=== PATIENT | female | born 1930 | race American Indian/Alaskan Native ===

== ENCOUNTER 2017-07-27 16:42 | Emergency (ER) | payer MEDICARE ==
[2017-07-27 18:01] LABS: Basophils # (Auto) 0.1 K/mm3 (0.0-0.1); Eosinophils # (Auto) 0.2 K/mm3 (0.0-0.4); Eosinophils % (Auto) 3.5 % (0.0-4.3); Hematocrit 40.2 % (30.3-42.9); Hemoglobin 13.4 gm/dl (10.1-14.3); Lymphocytes # (Auto) 2.7 K/mm3 (1.2-5.4); Lymphocytes % (Auto) 44.4 % (13.4-35.0); Mean Corpuscular HGB Conc 33 % (30-34); Mean Corpuscular Hemoglobin 31 pg (28-32); Mean Corpuscular Volume 94 fl (79-97); Monocytes # (Auto) 0.6 K/mm3 (0.0-0.8); Monocytes % (Auto) 10.1 % (0.0-7.3); Platelet Count 181 K/mm3 (140-440); Red Blood Count 4.27 M/mm3 (3.65-5.03); Red Cell Distribution Width 13.5 % (13.2-15.2)
[2017-07-27 18:10] LABS: INR 0.92 (0.87-1.13)
[2017-07-27 18:11] LABS: Partial Thromboplastin Time 29.6 Sec. (24.2-36.6)
[2017-07-27 18:17] LABS: Alanine Aminotransferase 7 units/L (7-56); Albumin 3.4 g/dL (3.9-5); BUN/Creatinine Ratio 16; Blood Urea Nitrogen 11 mg/dL (7-17); Calcium 8.9 mg/dL (8.4-10.2); Hemolysis Index 9
--- NOTE | 2017-07-27 18:59 | Cat Scan Report ---
FINAL REPORT PROCEDURE: CT head without contrast. TECHNIQUE: Computerized tomography of the head was performed without contrast material. HISTORY: neuro deficits < 6hrs or sx present upon awakening COMPARISON: No prior studies are available for comparison. FINDINGS: There is motion artifact on some of the images. There is moderate cerebral atrophy. There is mild evidence of chronic ischemic white matter disease. There are no mass lesions. There is no intracranial hemorrhage. The calvarium appears intact. The mastoid air cells and visualized paranasal sinuses are well aerated. IMPRESSION: Normal study for age.
--- NOTE | 2017-07-27 19:43 | Emergency Department Report ---
ED General Adult HPI - General Chief complaint: Altered Mental Status Stated complaint: AMS Time Seen by Provider: 07/27/17 17:41 Source: patient Mode of arrival: Ambulatory Limitations: No Limitations - History of Present Illness Initial comments: Patient is an 86-year-old female past history of Alzheimer's disease dementia and high blood pressure. Presents with altered mental status. History is obtained by patient's daughter. Patient stays at hospice facility and earlier on today she was slumped over on her left side and not as communicative as she normally is per her daughter. Patient currently answers questions and denies being in any pain. Patient started states that patient has returned to her baseline. Patient's are also states that patient has not eaten anything today. - Related Data Home Medications Medication Instructions Recorded Confirmed Last Taken Aspirin [Aspirin BABY CHEW TAB] 81 mg PO QDAY 01/26/13 01/26/13 01/26/13 08:00 81 Insulin Glargine,Hum.rec.anlog 15 unit SQ QDAY 01/26/13 01/26/13 01/26/13 07:30 [Lantus Solostar] 15u Levothyroxine [Synthroid] 100 mcg PO QAM 01/26/13 01/26/13 01/26/13 08:00 25 Vit D3-Vit K/Berberine/Hops 01/26/13 01/26/13 01/22/13 08:00 [Ostera Tablet] amLODIPine/VALSARTAN [Exforge 1 each PO BID 01/26/13 01/26/13 01/26/13 08:00 5-160 mg Tablet] 1 Azelastine/Fluticasone [Dymista 137 mcg NS PRN 04/11/13 04/11/13 Unknown Nasal False Pass] HYDROcodone/ACETAMINOPHEN 1 each PO Q4H PRN 04/11/13 04/11/13 Unknown [Hydrocodone-Acetaminophnen(Nf) 10/500 mg Tab] Insulin NPH/Regular [NovoLIN 70/30] 12 unit SQ BIDDIAB 04/11/13 04/11/13 Unknown Montelukast Sodium 10 04/11/13 04/11/13 Unknown Aspirin EC [Aspirin Enteric Coated 81 mg PO QDAY 08/19/14 10/11/14 10/09/14 TAB] Cholecalciferol Vit D3 [Vitamin D3] 1,000 unit PO QDAY 08/19/14 10/11/14 Fluticasone Propionate [Flovent 1 puff IH BID 08/19/14 10/11/14 10/09/14 Diskus] Ipratropium/Albuterol Sulfate 2 puff IH BID 08/19/14 10/11/14 10/09/14 [Combivent Respimat] Ipratropium/Albuterol Sulfate 3 ml IH BID 08/19/14 10/11/14 10/09/14 [Iprat-Albut 0.5-3(2.5) mg/3 ml] Montelukast [Singulair] 10 mg PO DAILY 08/19/14 10/11/14 10/09/14 Combivent Respimat 2 puff INHALATION BID 10/09/14 10/11/14 10/09/14 Levothyroxine 100 mcg PO QDAY 10/09/14 10/11/14 10/09/14 NovoLIN 70/30 12 units SUB-Q BID 10/09/14 10/11/14 10/09/14 12 UNITS Valsartan-Hctz 160-12.5 mg 1 tab PO QDAY 10/09/14 10/11/14 10/09/14 HYDROcodone/APAP 7.5-325 [[place] 2 tsp PO Q4HR PRN 10/11/14 10/11/14 10/09/14 7.5-325 mg per 15 ML] metFORMIN [Glucophage] 500 mg PO BID 10/11/14 10/11/14 10/09/14 Previous Rx's Medication Instructions Recorded Last Taken Type Ipratropium/Albuterol Sulfate 1 ampul IH Q6HRT #24 ampul.neb 01/26/13 Unknown Rx [DUONEB *Not for PRN Use*] Prednisone 40 mg PO QDAY #5 day 01/26/13 Unknown Rx Ranitidine HCl [Zantac] 300 mg PO QDAY #20 tablet 04/11/13 Unknown Rx Prednisone 20 mg PO QDAY #30 tablet 05/09/13 Unknown Rx Benzonatate [Tessalon Perles] 100 mg PO Q8HR PRN #30 capsule 11/05/13 Unknown Rx Omeprazole [PriLOSEC] 40 mg PO DAILY #30 capsule. 08/21/14 10/09/14 Rx traMADol [Ultram 50 MG tab] 50 mg PO Q8HR PRN #20 tablet 07/31/15 Unknown Rx Allergies Allergy/AdvReac Type Severity Reaction Status Date / Time No Known Allergies Allergy Verified 04/11/13 15:49 ED Review of Systems ROS: Stated complaint: AMS Other details as noted in HPI Comment: Unobtainable due to pts medical conditions (dementia) ED Past Medical Hx - Past Medical History Previous Medical History?: Yes Hx Hypertension: Yes Hx CVA: Yes Hx Heart Attack/AMI: No Hx Congestive Heart Failure: No Hx Diabetes: Yes Hx Deep Vein Thrombosis: No Hx Pulmonary Embolism: No Hx GERD: Yes Hx Liver Disease: No Hx Renal Disease: Yes Hx Sickle Cell Disease: No Hx Arthritis: Yes Hx Seizures: No Hx Kidney Stones: No Hx Asthma: Yes (chronic cough) Hx COPD: No Hx Tuberculosis: No Hx Dementia: No Additional medical history: shingles - Surgical History Past Surgical History?: Yes Hx Coronary Stent: No Hx Open Heart Surgery: No Hx Pacemaker: No Hx Internal Defibrillator: No Hx Cholecystectomy: No Hx Appendectomy: No Hx Breast Surgery: Yes (Left breast cyst removed) - Social History Smoking Status: Never Smoker - Medications Home Medications: Home Medications Medication Instructions Recorded Confirmed Last Taken Type Aspirin [Aspirin BABY CHEW TAB] 81 mg PO QDAY 01/26/13 01/26/13 01/26/13 08:00 History 81 Insulin Glargine,Hum.rec.anlog 15 unit SQ QDAY 01/26/13 01/26/13 01/26/13 07:30 History [Lantus Solostar] 15u Ipratropium/Albuterol Sulfate 1 ampul IH Q6HRT #24 ampul.neb 01/26/13 Unknown Rx [DUONEB *Not for PRN Use*] Levothyroxine [Synthroid] 100 mcg PO QAM 01/26/13 01/26/13 01/26/13 08:00 History 25 Prednisone 40 mg PO QDAY #5 day 01/26/13 Unknown Rx Vit D3-Vit K/Berberine/Hops 01/26/13 01/26/13 01/22/13 08:00 History [Ostera Tablet] amLODIPine/VALSARTAN [Exforge 1 each PO BID 01/26/13 01/26/13 01/26/13 08:00 History 5-160 mg Tablet] 1 Azelastine/Fluticasone [Dymista 137 mcg NS PRN 04/11/13 04/11/13 Unknown History Nasal False Pass] HYDROcodone/ACETAMINOPHEN 1 each PO Q4H PRN 04/11/13 04/11/13 Unknown History [Hydrocodone-Acetaminophnen(Nf) 10/500 mg Tab] Insulin NPH/Regular [NovoLIN 70/30] 12 unit SQ BIDDIAB 04/11/13 04/11/13 Unknown History Montelukast Sodium 10 04/11/13 04/11/13 Unknown History Ranitidine HCl [Zantac] 300 mg PO QDAY #20 tablet 04/11/13 Unknown Rx Prednisone 20 mg PO QDAY #30 tablet 05/09/13 Unknown Rx Benzonatate [Tessalon Perles] 100 mg PO Q8HR PRN #30 capsule 11/05/13 Unknown Rx Aspirin EC [Aspirin Enteric Coated 81 mg PO QDAY 08/19/14 10/11/14 10/09/14 History TAB] Cholecalciferol Vit D3 [Vitamin D3] 1,000 unit PO QDAY 08/19/14 10/11/14 History Fluticasone Propionate [Flovent 1 puff IH BID 08/19/14 10/11/14 10/09/14 History Diskus] Ipratropium/Albuterol Sulfate 2 puff IH BID 08/19/14 10/11/14 10/09/14 History [Combivent Respimat] Ipratropium/Albuterol Sulfate 3 ml IH BID 08/19/14 10/11/14 10/09/14 History [Iprat-Albut 0.5-3(2.5) mg/3 ml] Montelukast [Singulair] 10 mg PO DAILY 08/19/14 10/11/14 10/09/14 History Omeprazole [PriLOSEC] 40 mg PO DAILY #30 capsule. 08/21/14 10/11/14 10/09/14 Rx Combivent Respimat 2 puff INHALATION BID 10/09/14 10/11/14 10/09/14 History Levothyroxine 100 mcg PO QDAY 0510/11/14 10/09/14 History NovoLIN 70/30 12 units SUB-Q BID 10/09/14 10/11/14 10/09/14 History 12 UNITS Valsartan-Hctz 160-12.5 mg 1 tab PO QDAY 10/09/14 10/11/14 10/09/14 History HYDROcodone/APAP 7.5-325 [[place] 2 tsp PO Q4HR PRN 10/11/14 10/11/14 10/09/14 History 7.5-325 mg per 15 ML] metFORMIN [Glucophage] 500 mg PO BID 10/11/14 10/11/14 10/09/14 History traMADol [Ultram 50 MG tab] 50 mg PO Q8HR PRN #20 tablet 07/31/15 Unknown Rx ED Physical Exam - General Limitations: No Limitations General appearance: alert, in no apparent distress - Head Head exam: Present: atraumatic, normocephalic - Eye Eye exam: Present: normal appearance - ENT ENT exam: Present: mucous membranes moist - Neck Neck exam: Present: normal inspection - Respiratory Respiratory exam: Present: normal lung sounds bilaterally. Absent: respiratory distress - Cardiovascular Cardiovascular Exam: Present: regular rate, normal rhythm. Absent: systolic murmur, diastolic murmur, rubs, gallop - GI/Abdominal GI/Abdominal exam: Present: soft, normal bowel sounds - Extremities Exam Extremities exam: Present: normal inspection - Back Exam Back exam: Present: normal inspection - Neurological Exam Neurological exam: Present: alert, other (oriented x 1 ) - Psychiatric Psychiatric exam: Present: normal affect, normal mood - Skin Skin exam: Present: warm, dry, intact, normal color. Absent: rash ED Course Vital Signs 07/27/17 07/27/17 07/27/17 17:08 17:15 19:03 Temperature 98.1 F Pulse Rate 86 85 Respiratory 16 11 L 16 Rate Blood Pressure 163/93 163/93 O2 Sat by Pulse 97 95 96 Oximetry 07/27/17 19:15 Temperature Pulse Rate 113 H Respiratory 21 Rate Blood Pressure 164/94 O2 Sat by Pulse 95 Oximetry ED Medical Decision Making - Lab Data Result diagrams: 07/27/17 17:43 07/27/17 17:43 Lab Results 07/27/17 07/27/17 07/27/17 Range/Units 17:43 17:43 17:43 WBC 6.1 (4.5-11.0) K/mm3 RBC 4.27 (3.65-5.03) M/mm3 Hgb 13.4 (10.1-14.3) gm/dl Hct 40.2 (30.3-42.9) % MCV 94 (79-97) fl MCH 31 (28-32) pg MCHC 33 (30-34) % RDW 13.5 (13.2-15.2) % Plt Count 181 (140-440) K/mm3 Lymph % (Auto) 44.4 H (13.4-35.0) % Grimes % (Auto) 10.1 H (0.0-7.3) % Eos % (Auto) 3.5 (0.0-4.3) % Baso % (Auto) 1.0 (0.0-1.8) % Lymph # 2.7 (1.2-5.4) K/mm3 Grimes # 0.6 (0.0-0.8) K/mm3 Eos # 0.2 (0.0-0.4) K/mm3 Baso # 0.1 (0.0-0.1) K/mm3 Seg Neutrophils % 41.0 (40.0-70.0) % Seg Neutrophils # 2.5 (1.8-7.7) K/mm3 PT 12.8 (12.2-14.9) Sec. INR 0.92 (0.87-1.13) APTT 29.6 (24.2-36.6) Sec. Thrombin Time (15.1-19.6) Sec. Sodium 138 (137-145) mmol/L Potassium 3.8 (3.6-5.0) mmol/L Chloride 100.8 (98-107) mmol/L Carbon Dioxide 24 (22-30) mmol/L Anion Gap 17 mmol/L BUN 11 (7-17) mg/dL Creatinine 0.7 (0.7-1.2) mg/dL Estimated GFR > 60 ml/min BUN/Creatinine Ratio 16 % Glucose 85 (65-100) mg/dL Calcium 8.9 (8.4-10.2) mg/dL Total Bilirubin 0.70 (0.1-1.2) mg/dL AST 14 (5-40) units/L ALT 7 (7-56) units/L Alkaline Phosphatase 47 (35-129) units/L Troponin T < 0.010 (0.00-0.029) ng/mL Total Protein 6.3 (6.3-8.2) g/dL Albumin 3.4 L (3.9-5) g/dL Albumin/Globulin Ratio 1.2 % TSH (0.270-4.200) mlU/mL Plasma/Serum Alcohol (0-0.07) % 07/27/17 07/27/17 07/27/17 Range/Units 17:43 17:43 17:43 WBC (4.5-11.0) K/mm3 RBC (3.65-5.03) M/mm3 Hgb (10.1-14.3) gm/dl Hct (30.3-42.9) % MCV (79-97) fl MCH (28-32) pg MCHC (30-34) % RDW (13.2-15.2) % Plt Count (140-440) K/mm3 Lymph % (Auto) (13.4-35.0) % [place]imes % (Auto) (0.0-7.3) % Eos % (Auto) (0.0-4.3) % Baso % (Auto) (0.0-1.8) % Lymph # (1.2-5.4) K/mm3 [place]imes # (0.0-0.8) K/mm3 Eos # (0.0-0.4) K/mm3 Baso # (0.0-0.1) K/mm3 Seg Neutrophils % (40.0-70.0) % Seg Neutrophils # (1.8-7.7) K/mm3 PT (12.2-14.9) Sec. INR (0.87-1.13) APTT (24.2-36.6) Sec. Thrombin Time 17.0 (15.1-19.6) Sec. Sodium (137-145) mmol/L Potassium (3.6-5.0) mmol/L Chloride (98-107) mmol/L Carbon Dioxide (22-30) mmol/L Anion Gap mmol/L BUN (7-17) mg/dL Creatinine (0.7-1.2) mg/dL Estimated GFR ml/min BUN/Creatinine Ratio % Glucose (65-100) mg/dL Calcium (8.4-10.2) mg/dL Total Bilirubin (0.1-1.2) mg/dL AST (5-40) units/L ALT (7-56) units/L Alkaline Phosphatase (35-129) units/L Troponin T (0.00-0.029) ng/mL Total Protein (6.3-8.2) g/dL Albumin (3.9-5) g/dL Albumin/Globulin Ratio % TSH 0.576 (0.270-4.200) mlU/mL Plasma/Serum Alcohol < 0.01 (0-0.07) % - EKG Data -: EKG Interpreted by Me - EKG Data 07/27/17 19:45 EKG shows sinus rhythm no ST segment elevation or T-wave inversion normal axis - Radiology Data Radiology results: report reviewed CT head: Shows no acute intracranial process - Medical Decision Making Cdx: Brain bleed ddx: Ishemic stroke, hypoglycemia, metabolic abnormality I will get ct head, blood work, and ekg. I will re-evaluate the patient. Per patient's daughter patient is back to her baseline. I will send patient back to her nursing facility. Pt's daughter agrees with plan. Additional verbal discharge instructions were given. Critical care attestation.: If time is entered above; I have spent that time in minutes in the direct care of this critically ill patient, excluding procedure time. ED Disposition Clinical Impression: Weakness, Encephalopathy Dementia Qualifiers: Dementia type: Alzheimer's disease Alzheimer's disease onset: unspecified onset Dementia behavioral disturbance: without behavioral disturbance Qualified Code(s): G30.9 - Alzheimer's disease, unspecified; F02.80 - Dementia in other diseases classified elsewhere without behavioral disturbance Disposition: DC-01 TO HOME OR SELFCARE Is pt being admited?: No Does the pt Need Aspirin: No Condition: Stable Instructions: Dementia (ED) Referrals: LORENA COOLEY MD [Staff Physician] - 3-5 Days
[2017-07-27 20:44] VITALS: BP 145/90
== END 2017-07-27 20:45 | disposition home or self-care (01) ==
LOC: ED 16:42
DX: G30.9 Alzheimer's disease, unspecified (principal); F02.80 Dementia in other diseases classified elsewhere, unspecified severity, without behavioral disturbance, psychotic disturbance, mood disturbance, and anxiety; G93.40 Encephalopathy, unspecified; R53.1 Weakness; I10 Essential (primary) hypertension; E11.9 Type 2 diabetes mellitus without complications; K21.9 Gastro-esophageal reflux disease without esophagitis; M19.90 Unspecified osteoarthritis, unspecified site; J45.909 Unspecified asthma, uncomplicated; Z86.73 Personal history of transient ischemic attack (TIA), and cerebral infarction without residual deficits; Z79.899 Other long term (current) drug therapy
CPT/HCPCS: 36415; 70450; 80048; 80053; 84443; 84484; 85025; 85610; 85670; 85730; 93005; 93010; 99285; G0480; 80320

== ENCOUNTER 2018-02-27 20:51 | Inpatient (IN) | payer MEDICARE ==
[2018-02-27] MEDS ORDERED: NACL 0.9% 1000 ML 1,000 ML IV ONE (21:38)
--- NOTE | 2018-02-27 21:44 | Emergency Department Report ---
ED CPR HPI - General Chief Complaint: Cardiac Arrest/CPR Stated Complaint: CARDIAC ARREST Time Seen by Provider: 02/27/18 21:18 Source: EMS Mode of arrival: Stretcher Limitations: Physical Limitation - History of Present Illness Initial Comments: Patient is a 87-year-old female with history of CVA, hypertension, diabetes. Patient brought to the ER for evaluation for cardiac arrest. EMS stated that patient lived in an assisted living and they found the patient unresponsive with no pulse. Patient immediately intubated by EMS, initial events show asystole, patient given 2 mg of epinephrine and patient retain her circulation. Upon arrival to the ER patient blood pressure is 70/38 with epinephrine drip started by EMS. paintings restorer showing sinus rhythm. Endotracheal tube confirmed by good breath sound on both sides with color change in the capnometry. I inserted a right femoral central line for fluid resuscitation and vasopressor. Patient is started on Levophed drip. Initial EKG did not show any evidence of STEMI. MD Complaint: found unresponsive Bystander CPR Performed: Yes AED Applied by Bystander/Grounds Maintenance Manager: Yes Shock Advised: No Initial Findings in the Field: unresponsive, no pulse, systole ROSC in the Field: Yes Associated Injuries: No - Related Data Home Medications Medication Instructions Recorded Confirmed Last Taken Aspirin [Aspirin BABY CHEW TAB] 81 mg PO QDAY 01/26/13 01/26/13 01/26/13 08:00 81 Insulin Glargine,Hum.rec.anlog 15 unit SQ QDAY 01/26/13 01/26/13 01/26/13 07:30 [Lantus Solostar] 15u Levothyroxine [Synthroid] 100 mcg PO QAM 01/26/13 01/26/13 01/26/13 08:00 25 Vit D3-Vit K/Berber[place]/Hops 01/26/13 01/26/13 01/22/13 08:00 [Ostera Tablet] amLODIPine/VALSARTAN [Exforge 1 each PO BID 01/26/13 01/26/13 01/26/13 08:00 5-160 mg Tablet] 1 Azelastine/Fluticasone [Dymista 137 mcg NS PRN 04/11/13 04/11/13 Unknown Nasal [place]] HYDROcodone/ACETAMINOPHEN 1 each PO Q4H PRN 04/11/13 04/11/13 Unknown [Hydrocodone-Acetaminophnen(Nf) 10/500 mg Tab] Insulin NPH/Regular [NovoLIN ] 12 unit SQ BIDDIAB 04/11/13 04/11/13 Unknown Montelukast Sodium 10 04/11/13 04/11/13 Unknown Aspirin EC [Aspirin Enteric Coated 81 mg PO QDAY 08/19/14 10/11/14 10/09/14 TAB] Cholecalciferol Vit D3 [Vitamin D3] 1,000 unit PO QDAY 08/19/14 10/11/14 Fluticasone Propionate [Flovent 1 puff IH BID 08/19/14 10/11/14 10/09/14 Diskus] Ipratropium/Albuterol Sulfate 2 puff IH BID 08/19/14 10/11/14 10/09/14 [Combivent Respimat] Ipratropium/Albuterol Sulfate 3 ml IH BID 08/19/14 10/11/14 10/09/14 [Iprat-Albut 0.5-3(2.5) mg/3 ml] Montelukast [Singulair] 10 mg PO DAILY 08/19/14 10/11/14 10/09/14 Combivent Respimat 2 puff INHALATION BID 10/09/14 10/11/14 10/09/14 Levothyroxine 100 mcg PO QDAY 10/09/14 10/11/14 10/09/14 NovoLIN 12 units SUB-Q BID 10/09/14 10/11/14 10/09/14 12 UNITS Valsartan-Hctz 160-12.5 mg 1 tab PO QDAY 10/09/14 10/11/14 10/09/14 HYDROcodone/APAP 7.5-325 [[place] 2 tsp PO Q4HR PRN 10/11/14 10/11/14 10/09/14 7.5-325 mg per 15 ML] metFORMIN [Glucophage] 500 mg PO BID 10/11/14 10/11/14 10/09/14 Previous Rx's Medication Instructions Recorded Last Taken Type Ipratropium/Albuterol Sulfate 1 ampul IH Q6HRT #24 ampul.neb 01/26/13 Unknown Rx [DUONEB *Not for PRN Use*] Prednisone 40 mg PO QDAY #5 day 01/26/13 Unknown Rx Ranitidine HCl [Zantac] 300 mg PO QDAY #20 tablet 04/11/13 Unknown Rx Prednisone 20 mg PO QDAY #30 tablet 05/09/13 Unknown Rx Benzonatate [Tessalon Perles] 100 mg PO Q8HR PRN #30 capsule 11/05/13 Unknown Rx Omeprazole [PriLOSEC] 40 mg PO DAILY #30 capsule. 08/21/14 10/09/14 Rx traMADol [Ultram 50 MG tab] 50 mg PO Q8HR PRN #20 tablet 07/31/15 Unknown Rx Allergies Allergy/AdvReac Type Severity Reaction Status Date / Time No Known Allergies Allergy Verified 04/11/13 15:49 ED Review of Systems ROS: Stated complaint: CARDIAC ARREST Other details as noted in HPI Comment: Unobtainable due to pts medical conditions ED Past Medical Hx - Past Medical History Hx Hypertension: Yes Hx CVA: Yes Hx Heart Attack/AMI: No Hx Congestive Heart Failure: No Hx Diabetes: Yes Hx Deep Vein Thrombosis: No Hx Pulmonary Embolism: No Hx GERD: Yes Hx Liver Disease: No Hx Renal Disease: Yes Hx Sickle Cell Disease: No Hx Arthritis: Yes Hx Seizures: No Hx Kidney Stones: No Hx Asthma: Yes (chronic cough) Hx COPD: No Hx Tuberculosis: No Hx Dementia: No Additional medical history: shingles - Surgical History Hx Coronary Stent: No Hx Open Heart Surgery: No Hx Pacemaker: No Hx Internal Defibrillator: No Hx Cholecystectomy: No Hx Appendectomy: No Hx Breast Surgery: Yes (Left breast cyst removed) - Social History Smoking Status: Unknown if ever smoked - Medications Home Medications: Home Medications Medication Instructions Recorded Confirmed Last Taken Type Aspirin [Aspirin BABY CHEW TAB] 81 mg PO QDAY 01/26/13 01/26/13 01/26/13 08:00 History 81 Insulin Glargine,Hum.rec.anlog 15 unit SQ QDAY 01/26/13 01/26/13 01/26/13 07:30 History [Lantus Solostar] 15u Ipratropium/Albuterol Sulfate 1 ampul IH Q6HRT #24 ampul.neb 01/26/13 Unknown Rx [DUONEB *Not for PRN Use*] Levothyroxine [Synthroid] 100 mcg PO QAM 01/26/13 01/26/13 01/26/13 08:00 History 25 Prednisone 40 mg PO QDAY #5 day 01/26/13 Unknown Rx Vit D3-Vit K/[place]/Hops 01/26/13 01/26/13 01/22/13 08:00 History [Ostera Tablet] amLODIPine/VALSARTAN [Exforge 1 each PO BID 01/26/13 01/26/13 01/26/13 08:00 History 5-160 mg Tablet] 1 Azelastine/Fluticasone [Dymista 137 mcg NS PRN 04/11/13 04/11/13 Unknown History Nasal [place]] HYDROcodone/ACETAMINOPHEN 1 each PO Q4H PRN 04/11/13 04/11/13 Unknown History [Hydrocodone-Acetaminophnen(Nf) 10/500 mg Tab] Insulin NPH/Regular [NovoLIN 70/30] 12 unit SQ BIDDIAB 04/11/13 04/11/13 Unknown History Montelukast Sodium 10 04/11/13 04/11/13 Unknown History Ranitidine HCl [Zantac] 300 mg PO QDAY #20 tablet 04/11/13 Unknown Rx Prednisone 20 mg PO QDAY #30 tablet 05/09/13 Unknown Rx Benzonatate [Tessalon Perles] 100 mg PO Q8HR PRN #30 capsule 11/05/13 Unknown Rx Aspirin EC [Aspirin Enteric Coated 81 mg PO QDAY 08/19/14 10/11/14 10/09/14 History TAB] Cholecalciferol Vit D3 [Vitamin D3] 1,000 unit PO QDAY 08/19/14 10/11/14 History Fluticasone Propionate [Flovent 1 puff IH BID 08/19/14 10/11/14 10/09/14 History Diskus] Ipratropium/Albuterol Sulfate 2 puff IH BID 08/19/14 10/11/14 10/09/14 History [Combivent Respimat] Ipratropium/Albuterol Sulfate 3 ml IH BID 08/19/14 10/11/14 10/09/14 History [Iprat-Albut 0.5-3(2.5) mg/3 ml] Montelukast [Singulair] 10 mg PO DAILY 08/19/14 10/11/14 10/09/14 History Omeprazole [PriLOSEC] 40 mg PO DAILY #30 capsule. 08/21/14 10/11/14 10/09/14 Rx Combivent Respimat 2 puff INHALATION BID 10/09/14 10/11/14 10/09/14 History Levothyroxine 100 mcg PO QDAY 10/09/14 10/11/14 10/09/14 History NovoLIN 70/30 12 units SUB-Q BID 10/09/14 10/11/14 10/09/14 History 12 UNITS Valsartan-Hctz 160-12.5 mg 1 tab PO QDAY 10/09/14 10/11/14 10/09/14 History HYDROcodone/APAP 7.5-325 [[place] 2 tsp PO Q4HR PRN 10/11/14 10/11/14 10/09/14 History 7.5-325 mg per 15 ML] metFORMIN [Glucophage] 500 mg PO BID 10/11/14 10/11/14 10/09/14 History traMADol [Ultram 50 MG tab] 50 mg PO Q8HR PRN #20 tablet 07/31/15 Unknown Rx ED Physical Exam - General Limitations: Physical Limitation General appearance: other (intubated) - Head Head exam: Present: atraumatic, normocephalic, normal inspection - Eye Pupils: Present: other (pupils are 5 mm, dilated nonreactive to light.) - Neck Neck exam: Present: normal inspection - Respiratory Respiratory exam: Present: other (no spontaneous respiration) - Cardiovascular Cardiovascular Exam: Present: normal heart sounds. Absent: diastolic murmur, gallop - GI/Abdominal GI/Abdominal exam: Present: soft - Extremities Exam Extremities exam: Present: normal inspection - Neurological Exam Neurological exam: Present: other (intubated) - Skin Skin exam: Present: warm, intact ED Course Vital Signs 02/27/18 02/27/18 02/27/18 21:07 21:10 21:30 Temperature Pulse Rate 79 120 H 117 H Respiratory 12 19 Rate Blood Pressure 200/117 Blood Pressure 68/30 147/89 [Left] O2 Sat by Pulse 99 100 100 Oximetry 02/27/18 02/27/18 02/27/18 21:45 22:00 22:15 Temperature 94.2 F L Pulse Rate 122 H 120 H 116 H Respiratory 16 17 16 Rate Blood Pressure Blood Pressure 185/119 187/115 193/112 [Left] O2 Sat by Pulse 100 100 100 Oximetry - Reevaluation(s) Reevaluation #1: 02/27/18 23:11 I discussed the patient with Dr. Walker from cardiology, he stated that he will be consulted on the patient. - Central Line Placement Right Femoral Consent Obtained: emergent situation Time Out Performed: Yes Patient Placed on Monitor/Pulse Ox: Yes MD Prep: mask, gown, gloves Central Line Prep: Povidone-Iodine 1%, Chlorhexidine scrub, sterile drapes applied Local Anesthesia Used: Lidocaine 2% Amount of Anesthesia Used (mls): 5 Central Line Lumen Inserted: triple Bloods Obtained for Lab: Yes Central Line Position: good blood return, all ports aspirated, flus, sutured in place with 3-0 Patient Tolerated Procedure: well, no complications Complications: none ED Medical Decision Making - Lab Data Result diagrams: 02/27/18 21:50 02/27/18 21:50 - EKG Data -: EKG Interpreted by Ks EKG shows normal: sinus rhythm - EKG Data Interpretation: no acute changes - Radiology Data Radiology results: report reviewed Referring Physician: WOODY MANJARREZ Patient Name: MYKEL AYALA Date of : 1930 Sex: Female Report Date: 2018-02-27 Report Status: [place] [address] XRay Report Signed Patient: MYKEL AYALA MR#: [id number] : 1930 Acct:[id number] Age/Sex: 87 / F ADM Date: 02/27/18 Loc: ED Attending Dr: Ordering Physician: WOODY MANJARREZ Date of Service: 02/27/18 Procedure(s): XR chest 1V ap Accession Number(s): [id number] cc: WOODY MANJARREZ Fluoro Time In Minutes: FINAL REPORT PROCEDURE: XR CHEST 1V AP TECHNIQUE: Chest radiograph anteroposterior view. CPT 20027 HISTORY: chest pain COMPARISON: 07/30/2015 FINDINGS: Heart: Normal. Mediastinum/Vessels: Normal. Lungs/Pleural space: Moderately elevated right hemidiaphragm is again noted obscuring the right lower lung. There are no obvious infiltrates or mass lesions. Pleural spaces are clear. Bony thorax: No acute osseous abnormality. Life support devices: Endotracheal tube is terminating at the level of christopher. Nasogastric tube is extending down into the abdomen and its tip is not included in the study.. IMPRESSION: No acute pulmonary infiltrates Endotracheal tube is terminating at the level of christopher. Transcribed By: [facility] Dictated By: DELMA KUNZ Electronically Authenticated By: DELMA KUNZ Signed Date/Time: 02/27/18 2218 Referring Physician: WOODY MANJARREZ Patient Name: MYKEL AYALA Date of : 1930 Sex: Female Report Date: 2018-02-28 Report Status: [place] [address] Cat Scan Report Signed Patient: MYKEL AYALA MR#: [id number] : 1930 Acct:[id number] Age/Sex: 87 / F ADM Date: 02/27/18 Loc: ED Attending Dr: Ordering Physician: WOODY MANJARREZ Date of Service: 02/28/18 Procedure(s): CT head/brain wo con Accession Number(s): [id number] cc: WOODY MANJARREZ FINAL REPORT EXAM: CT HEAD/BRAIN WO CON HISTORY: AMS TECHNIQUE: Routine axial imaging was obtained of the brain without IV contrast. Comparison is made to the study of 07/27/2017. FINDINGS: There is age related volume loss. There diminished attenuation of the periventricular and deep white matter compatible with chronic microvascular disease changes. There is no evidence of acute stroke or hemorrhage. The ventricular system is symmetric in size. The sinuses reveal mild mucosal thickening in the sphenoid sinuses. The mastoid air cells are well pneumatized. The calvarium appears intact. IMPRESSION: Age related volume loss with chronic microvascular disease changes. No evidence of acute stroke or hemorrhage. Transcribed By: RB Dictated By: JÚNIOR AYERS MD Electronically Authenticated By: JÚNIOR AYERS MD Signed Date/Time: 02/28/18120 DD/ 0 TD/TT: 02/28/18120 DD/ 17 TD/TT: 02/27/182217 - Medical Decision Making Ms Ayala is a 87-year-old female with history of CVA, hypertension, diabetes. Patient brought to the ER for evaluation for cardiac arrest. EMS stated that patient lived in an assisted living and they found the patient unresponsive with no pulse. Patient immediately intubated by EMS, initial events show asystole, patient given 2 mg of epinephrine and patient retain her circulation. Upon arrival to the ER patient blood pressure is 70/38 with epinephrine drip started by EMS. paintings restorer showing sinus rhythm. Endotracheal tube confirmed by good breath sound on both sides with color change in the capnometry. I inserted a right femoral central line for fluid resuscitation and vasopressor. Patient is started on Levophed drip. Initial EKG did not show any evidence of STEMI. Patient troponin came back as 0.4. I discussed the patient was Dr. De Leon from pump technician advised that he will follow-up with the patient. I discussed the patient with Dr. Ewelina Godoy, she agreed to admit the patient to intensive care unit. Critical Care Time: Yes Critical care time in (mins) excluding proc time.: 45 Critical care attestation.: If time is entered above; I have spent that time in minutes in the direct care of this critically ill patient, excluding procedure time. ED Disposition Clinical Impression: Cardiopulmonary arrest, Elevated troponin Disposition: OP ADMIT IP TO THIS HOSP Is pt being admited?: Yes Condition: Stable Referrals: PRIMARY CARE,MD [Primary Care Provider] - 3-5 Days
[2018-02-27 22:19] LABS: Hemoglobin 14.9 gm/dl (10.1-14.3); Mean Corpuscular HGB Conc 32 % (30-34); Mean Corpuscular Hemoglobin 31 pg (28-32); Mean Corpuscular Volume 97 fl (79-97); Platelet Count 221 K/mm3 (140-440); Red Blood Count 4.82 M/mm3 (3.65-5.03); Red Cell Distribution Width 14.5 % (13.2-15.2)
--- NOTE | 2018-02-27 22:19 | XRay Report ---
FINAL REPORT PROCEDURE: XR CHEST 1V AP TECHNIQUE: Chest radiograph anteroposterior view. CPT 98437 HISTORY: chest pain COMPARISON: 07/30/2015 FINDINGS: Heart: Normal. Mediastinum/Vessels: Normal. Lungs/Pleural space: Moderately elevated right hemidiaphragm is again noted obscuring the right lower lung. There are no obvious infiltrates or mass lesions. Pleural spaces are clear. Bony thorax: No acute osseous abnormality. Life support devices: Endotracheal tube is terminating at the level of christopher. Nasogastric tube is extending down into the abdomen and its tip is not included in the study.. IMPRESSION: No acute pulmonary infiltrates Endotracheal tube is terminating at the level of christopher.
[2018-02-27 22:30] LABS: INR 1.02 (0.87-1.13)
[2018-02-27 22:53] LABS: Creatine Kinase MB 21.8 ng/mL (0.0-4.0)
[2018-02-27 22:55] LABS: Alanine Aminotransferase 272 units/L (7-56); Albumin 4.5 g/dL (3.9-5)
[2018-02-27 22:56] LABS: Bilirubin,Direct < 0.2 mg/dL (0-0.2)
[2018-02-27 23:00] LABS: Band Neutrophils # (Manual) 0.7 K/mm3; Basophils % (Manual) 0 % (0.0-1.8); Eosinophils % (Manual) 0 % (0.0-4.3); Total Cells Counted 100
[2018-02-27 23:01] LABS: Crenated RBC 2+; Ovalocytes 1+; Platelet Estimate Consistent w Auto
[2018-02-27] MEDS ORDERED: HumuLIN R IV ONE (23:03)
[2018-02-27 23:08] LABS: Chol/HDL Ratio 2.51 %
[2018-02-28] MEDS ORDERED: ATIVAN ONE (00:38)
[2018-02-28] MEDS ORDERED: NACL 0.9% 1000 ML 1,000 ML ONE (00:56)
--- NOTE | 2018-02-28 01:22 | Cat Scan Report ---
FINAL REPORT EXAM: CT HEAD/BRAIN WO CON HISTORY: AMS TECHNIQUE: Routine axial imaging was obtained of the brain without IV contrast. Comparison is made to the study of 07/27/2017. FINDINGS: There is age related volume loss. There diminished attenuation of the periventricular and deep white matter compatible with chronic microvascular disease changes. There is no evidence of acute stroke or hemorrhage. The ventricular system is symmetric in size. The sinuses reveal mild mucosal thickening in the sphenoid sinuses. The mastoid air cells are well pneumatized. The calvarium appears intact. IMPRESSION: Age related volume loss with chronic microvascular disease changes. No evidence of acute stroke or hemorrhage.
[2018-02-28] MEDS ORDERED: D50W (25GM) Syringe IV PRN (02:38)
[2018-02-28] MEDS ORDERED: SODIUM CHLORIDE FLUSH SYRINGE 10 ML IV PRN (02:38)
[2018-02-28] MEDS ORDERED: TYLENOL PO PRN (02:38)
[2018-02-28] MEDS ORDERED: ZOFRAN IV PRN (02:38)
--- NOTE | 2018-02-28 02:40 | History and Physical Report ---
History of Present Illness Date of examination: 02/28/18 History of present illness: 87-year-old woman with a history of hypertension, diabetes, CVA, COPD was brought from the assisted living facility because she was noted to be slumped over while sitting at the dinner table. Review of system is unobtainable. The patient has a living will that says DO NOT RESUSCITATE however the daughter wants everything to be done PAST MEDICAL HISTORY: hypertension, diabetes, CVA, COPD PAST SURGICAL HISTORY: Lumpectomy SOCIAL HISTORY: No alcohol, no drugs, tobacco FAMILY HISTORY: Hypertension Medications and Allergies Allergies Allergy/AdvReac Type Severity Reaction Status Date / Time No Known Allergies Allergy Verified 04/11/13 15:49 Home Medications Medication Instructions Recorded Confirmed Last Taken Type Aspirin [Aspirin BABY CHEW TAB] 81 mg PO QDAY 01/26/13 01/26/13 01/26/13 08:00 History 81 Insulin Glargine,Hum.rec.anlog 15 unit SQ QDAY 01/26/13 01/26/13 01/26/13 07:30 History [Lantus Solostar] 15u Ipratropium/Albuterol Sulfate 1 ampul IH Q6HRT #24 ampul.neb 01/26/13 Unknown Rx [DUONEB *Not for PRN Use*] Levothyroxine [Synthroid] 100 mcg PO QAM 01/26/13 01/26/13 01/26/13 08:00 History 25 Prednisone 40 mg PO QDAY #5 day 01/26/13 Unknown Rx Vit D3-Vit K/Berberine/Hops 01/26/13 01/26/13 01/22/13 08:00 History [Ostera Tablet] amLODIPine/VALSARTAN [Exforge 1 each PO BID 01/26/13 01/26/13 01/26/13 08:00 History 5-160 mg Tablet] 1 Azelastine/Fluticasone [Dymista 137 mcg NS PRN 04/11/13 04/11/13 Unknown History Nasal [place]] HYDROcodone/ACETAMINOPHEN 1 each PO Q4H PRN 04/11/13 04/11/13 Unknown History [Hydrocodone-Acetaminophnen(Nf) 10/500 mg Tab] Insulin NPH/Regular [NovoLIN 70/30] 12 unit SQ BIDDIAB 04/11/13 04/11/13 Unknown History Montelukast Sodium 10 04/11/13 04/11/13 Unknown History Ranitidine HCl [Zantac] 300 mg PO QDAY #20 tablet 04/11/13 Unknown Rx Prednisone 20 mg PO QDAY #30 tablet 05/09/13 Unknown Rx Benzonatate [Tessalon Perles] 100 mg PO Q8HR PRN #30 capsule 11/05/13 Unknown Rx Aspirin EC [Aspirin Enteric Coated 81 mg PO QDAY 08/19/14 10/11/14 10/09/14 History TAB] Cholecalciferol Vit D3 [Vitamin D3] 1,000 unit PO QDAY 08/19/14 10/11/14 History Fluticasone Propionate [Flovent 1 puff IH BID 08/19/14 10/11/14 10/09/14 History Diskus] Ipratropium/Albuterol Sulfate 2 puff IH BID 08/19/14 10/11/14 10/09/14 History [Combivent Respimat] Ipratropium/Albuterol Sulfate 3 ml IH BID 08/19/14 10/11/14 10/09/14 History [Iprat-Albut 0.5-3(2.5) mg/3 ml] Montelukast [Singulair] 10 mg PO DAILY 08/19/14 10/11/14 10/09/14 History Omeprazole [PriLOSEC] 40 mg PO DAILY #30 capsule. 08/21/14 10/11/14 10/09/14 Rx Combivent Respimat 2 puff INHALATION BID 10/09/14 10/11/14 10/09/14 History Levothyroxine 100 mcg PO QDAY 10/09/14 10/11/14 10/09/14 History NovoLIN 70/30 12 units SUB-Q BID 10/09/14 10/11/14 10/09/14 History 12 UNITS Valsartan-Hctz 160-12.5 mg 1 tab PO QDAY 10/09/14 10/11/14 10/09/14 History HYDROcodone/APAP 7.5-325 [[place] 2 tsp PO Q4HR PRN 10/11/14 10/11/14 10/09/14 History 7.5-325 mg per 15 ML] metFORMIN [Glucophage] 500 mg PO BID 10/11/14 10/11/14 10/09/14 History traMADol [Ultram 50 MG tab] 50 mg PO Q8HR PRN #20 tablet 07/31/15 Unknown Rx Exam - Physical Exam Narrative exam: Gen. appearance: Patient lying in bed, no apparent distress, intubated, sedated HEENT: Normocephalic, atraumatic, pupils equally round and reactive to light, unable to do extraocular movement, and no sclericterus,. No JVD or thyromegaly or nodule,neck supple, no carotid bruit ,mucous membranes moist, no exudate or erythema Heart: S1, S2, regular rate and rhythm Lungs: Clear bilaterally, breathing comfortable Abdomen: Positive bowel sounds, soft, nondistended, no organomegaly Extremity:no edema cyanosis, clubbing Skin: no rash, dry, warm Neuro: sedated - Constitutional Vitals: Temp Pulse Resp BP Pulse Ox 94.2 F L 116 H 16 187/99 100 02/27/18 22:00 02/28/18 02:00 02/27/18 22:15 02/28/18 02:00 02/28/18 02:00 Results - Labs CBC & Chem 7: 02/27/18 21:50 02/27/18 21:50 Labs: Abnormal lab results 02/27/18 02/27/18 02/27/18 Range/Units 21:50 21:50 21:50 WBC 12.0 H (4.5-11.0) K/mm3 Hgb 14.9 H (10.1-14.3) gm/dl Hct 47.0 H (30.3-42.9) % Lymphocytes % (Manual) 40.0 H (13.4-35.0) % POC ABG pH (7.35-7.45) POC ABG pCO2 (35-45) POC ABG pO2 (80-105) Sodium 136 L (137-145) mmol/L Chloride 93.6 L (98-107) mmol/L Carbon Dioxide 14 L (22-30) mmol/L BUN 21 H (7-17) mg/dL Creatinine 1.4 H (0.7-1.2) mg/dL Glucose 409 H (65-100) mg/dL AST 305 H (5-40) units/L ALT 272 H (7-56) units/L Alkaline Phosphatase 167 H (35-129) units/L Total Creatine Kinase 250 H (30-135) units/L CK-MB (CK-2) 21.8 H (0.0-4.0) ng/mL CK-MB (CK-2) Rel Index 8.7 H (0-4) Troponin T 0.416 H* (0.00-0.029) ng/mL Total Protein 8.3 H (6.3-8.2) g/dL Cholesterol 201 H (50-199) mg/dL HDL Cholesterol 80 H (40-59) mg/dL 02/27/18 02/28/18 Range/Units 22:06 00:10 WBC (4.5-11.0) K/mm3 Hgb (10.1-14.3) gm/dl Hct (30.3-42.9) % Lymphocytes % (Manual) (13.4-35.0) % POC ABG pH 7.288 L (7.35-7.45) POC ABG pCO2 34.2 L (35-45) POC ABG pO2 574 H (80-105) Sodium (137-145) mmol/L Chloride (98-107) mmol/L Carbon Dioxide (22-30) mmol/L BUN (7-17) mg/dL Creatinine (0.7-1.2) mg/dL Glucose (65-100) mg/dL AST (5-40) units/L ALT (7-56) units/L Alkaline Phosphatase (35-129) units/L Total Creatine Kinase 314 H (30-135) units/L CK-MB (CK-2) 29.0 H (0.0-4.0) ng/mL CK-MB (CK-2) Rel Index 9.2 H (0-4) Troponin T 0.506 H* D (0.00-0.029) ng/mL Total Protein (6.3-8.2) g/dL Cholesterol (50-199) mg/dL HDL Cholesterol (40-59) mg/dL - Imaging and Cardiology EKG: report reviewed Chest x-ray: report reviewed CT Scan - head: report reviewed Assessment and Plan Assessment Cardiac arrest Acute respiratory failure Abnormal cardiac enzymes Elevated LFTs Dehydration Hypertension History of dementia History of CVA Plan Admit to medicine Check cardiac enzymes, echo, CAT scan of abdomen and pelvis Consult cardiology, critical care Start aspirin, BB, hold ACEI for now, renal failure Start gentle hydration, IV hydralazine for blood pressure control DVT prophylaxis
[2018-02-28] MEDS ORDERED: NACL 0.45% 1000 ML 1,000 ML IV SCH (03:00)
[2018-02-28 03:39] LABS: Creatine Kinase MB 44.8 ng/mL (0.0-4.0)
--- NOTE | 2018-02-28 03:54 | XRay Report ---
FINAL REPORT EXAM: XR CHEST 1V AP HISTORY: ETT placement TECHNIQUE: A portable upright view the chest was obtained and compared to the study of 02/27/2018. FINDINGS: The tip of the ET tube is just below the christopher and should be pulled back 2 cm for optimal positioning. The NG tube is in good position in the stomach. The heart size is normal. There are calcified granulomas in left hilum. The lungs are negative for infiltrates or effusions. There is stable nodularity in the right upper lobe. The skeletal structures otherwise do not show any acute changes. IMPRESSION: ET tube needs to be pulled back 2 cm for optimal positioning. Satisfactory position of the nasogastric tube. No acute infiltrates or effusions.
[2018-02-28] MEDS ORDERED: MIDAZOLAM 100 MG in NACL 0.9% 80 ML IV SCH (04:00)
[2018-02-28] MEDS: APRESOLINE IV PRN ×3 (04:02→16:27)
[2018-02-28] MEDS ORDERED: SYNTHROID PO SCH (06:00)
--- NOTE | 2018-02-28 06:01 | Cat Scan Report ---
FINAL REPORT EXAM: CT ABDOMEN PELVIS WO CON HISTORY: elevated lft TECHNIQUE: Routine axial imaging was obtained of the abdomen and pelvis without oral or IV contrast. Sagittal and coronal reconstructions were reviewed. Comparison is made the study of 07/30/2015. FINDINGS: Images through lung bases reveal a small left-sided effusion. There is a small pericardial effusion. There is elevation the right hemidiaphragm. There is an NG tube in good position in the stomach. The liver and biliary tree appear normal. The gallbladder is mildly distended. Stones are not seen. The pancreas and spleen appear normal. Adrenal glands are not enlarged. The kidneys show no evidence of stones or hydronephrosis. The bowel loops are normal in caliber. The appendix is not enlarged. There is a moderate amount retained feces throughout the colon. There is no evidence of free fluid or adenopathy. In the pelvis the uterus is atrophic. The bladder contains a Herrera catheter which is in proper position. The skeletal structures reveal multilevel disc degeneration in the lumbar spine. There also a right femoral venous catheter in place. IMPRESSION: No acute process in the abdomen and pelvis. Small left-sided pleural effusion. Small pericardial effusion. Moderate amount retained feces in the colon. Multilevel disc degeneration in the lumbar spine
[2018-02-28] MEDS: BABY ASPIRIN PO SCH ×2 (06:17→10:01)
[2018-02-28] MEDS ORDERED: PULMICORT IH SCH (08:00)
[2018-02-28] MEDS ORDERED: DUONEB *Not for PRN Use IH SCH (08:00)
[2018-02-28 09:38] LABS: Creatine Kinase MB 52.6 ng/mL (0.0-4.0)
[2018-02-28] MEDS ORDERED: NON-FORMULARY (Fluticasone Propionate [Flovent Diskus] 1 PUFF) IH SCH (10:00)
[2018-02-28] MEDS ORDERED: VITAMIN D3 PO SCH (10:00)
[2018-02-28] MEDS ORDERED: ALBUTEROL SULFATE IH SCH (10:00)
[2018-02-28] MEDS ORDERED: LOVENOX SUB-Q SCH (10:00)
[2018-02-28] MEDS ORDERED: PREVACID SOLUTAB FEEDTUBE SCH (10:00)
[2018-02-28] MEDS ORDERED: PROTONIX PO SCH (10:00)
[2018-02-28] MEDS ORDERED: IPRATROPIUM IH SCH (10:00)
[2018-02-28] MEDS: SODIUM CHLORIDE FLUSH SYRINGE 10 ML IV SCH ×2 (10:02→22:22)
[2018-02-28 10:06] LABS: Bilirubin,Urine NEG (Negative); Blood,Urine MOD (Negative); Color,Urine Straw (Yellow); Protein,Urine <15 mg/dL mg/dL (Negative); Urobilinogen,Urine < 2.0 mg/dL (<2.0)
--- NOTE | 2018-02-28 11:38 | Consultation ---
History of Present Illness Consult date: 02/28/18 Requesting physician: ANNIE CHUNG Reason for consult: other (cardiac arrest) History of present illness: 87 y/o female, found in cardiac arrest at assisted living facility and was resuscitated. Brought to ICU and is currently not sedated. Daughter at bedside. Per daughter, mother's wishes were to be a DNR. She is not sure why the resuscitated her. Her older sister went to go get the documents. Past History Past Medical History: other (unable to obtain) Past Surgical History: Other (unable to obtain) Social history: other (unable to obtain) Family history: other (unable to obtain) Medications and Allergies Allergies Allergy/AdvReac Type Severity Reaction Status Date / Time No Known Allergies Allergy Verified 04/11/13 15:49 Home Medications Medication Instructions Recorded Confirmed Last Taken Type Aspirin [Aspirin BABY CHEW TAB] 81 mg PO QDAY 01/26/13 01/26/13 01/26/13 08:00 History 81 Insulin Glargine,Hum.rec.anlog 15 unit SQ QDAY 01/26/13 01/26/13 01/26/13 07:30 History [Lantus Solostar] 15u Ipratropium/Albuterol Sulfate 1 ampul IH Q6HRT #24 ampul.neb 01/26/13 Unknown Rx [DUONEB *Not for PRN Use*] Levothyroxine [Synthroid] 100 mcg PO QAM 01/26/13 01/26/13 01/26/13 08:00 History 25 Prednisone 40 mg PO QDAY #5 day 01/26/13 Unknown Rx Vit D3-Vit K/Berberine/Hops 01/26/13 01/26/13 01/22/13 08:00 History [Ostera Tablet] amLODIPine/VALSARTAN [Exforge 1 each PO BID 01/26/13 01/26/13 01/26/13 08:00 History 5-160 mg Tablet] 1 Azelastine/Fluticasone [Dymista 137 mcg NS PRN 04/11/13 04/11/13 Unknown History Nasal [place]] HYDROcodone/ACETAMINOPHEN 1 each PO Q4H PRN 04/11/13 04/11/13 Unknown History [Hydrocodone-Acetaminophnen(Nf) 10/500 mg Tab] Insulin NPH/Regular [NovoLIN 70/30] 12 unit SQ BIDDIAB 04/11/13 04/11/13 Unknown History Montelukast Sodium 10 04/11/13 04/11/13 Unknown History Ranitidine HCl [Zantac] 300 mg PO QDAY #20 tablet 04/11/13 Unknown Rx Prednisone 20 mg PO QDAY #30 tablet 05/09/13 Unknown Rx Benzonatate [Tessalon Perles] 100 mg PO Q8HR PRN #30 capsule 11/05/13 Unknown Rx Aspirin EC [Aspirin Enteric Coated 81 mg PO QDAY 08/19/14 10/11/14 10/09/14 History TAB] Cholecalciferol Vit D3 [Vitamin D3] 1,000 unit PO QDAY 08/19/14 10/11/14 History Fluticasone Propionate [Flovent 1 puff IH BID 08/19/14 10/11/14 10/09/14 History Diskus] Ipratropium/Albuterol Sulfate 2 puff IH BID 08/19/14 10/11/14 10/09/14 History [Combivent Respimat] Ipratropium/Albuterol Sulfate 3 ml IH BID 08/19/14 10/11/14 10/09/14 History [Iprat-Albut 0.5-3(2.5) mg/3 ml] Montelukast [Singulair] 10 mg PO DAILY 08/19/14 10/11/14 10/09/14 History Omeprazole [PriLOSEC] 40 mg PO DAILY #30 capsule. 08/21/14 10/11/14 10/09/14 Rx Combivent Respimat 2 puff INHALATION BID 10/09/14 10/11/14 10/09/14 History Levothyroxine 100 mcg PO QDAY 10/09/14 10/11/14 10/09/14 History NovoLIN 70/30 12 units SUB-Q BID 10/09/14 10/11/14 10/09/14 History 12 UNITS Valsartan-Hctz 160-12.5 mg 1 tab PO QDAY 10/09/14 10/11/14 10/09/14 History HYDROcodone/APAP 7.5-325 [[place] 2 tsp PO Q4HR PRN 10/11/14 10/11/1415 History 7.5-325 mg per 15 ML] metFORMIN [Glucophage] 500 mg PO BID 10/11/14 10/11/14 10/09/14 History traMADol [Ultram 50 MG tab] 50 mg PO Q8HR PRN #20 tablet 07/31/15 Unknown Rx Active Meds: Active Medications Acetaminophen (Tylenol) 650 mg PO Q4H PRN PRN Reason: Pain MILD(1-3)/Fever >100.5/BAIRES Albuterol/Ipratropium (Duoneb *Not For Prn Use*) 1 ampul IH BIDRT [facility] Last Admin: 02/28/18 10:50 Dose: 1 ampul Aspirin (Baby Aspirin) 81 mg PO QDAY [facility] Last Admin: 02/28/18 10:01 Dose: 81 mg Budesonide (Pulmicort) 0.5 mg IH Q12HRT [facility] Last Admin: 02/28/18 10:50 Dose: 0.5 mg Cholecalciferol (Vitamin D3) 1,000 unit PO QDAY [facility] Last Admin: 02/28/18 10:01 Dose: 1,000 unit Dextrose (D50w (25gm) Syringe) 50 ml IV PRN PRN PRN Reason: Hypoglycemia Enoxaparin Sodium (Lovenox) 40 mg SUB-Q QDAY [facility] Last Admin: 02/28/18 10:02 Dose: 40 mg Hydralazine HCl (Apresoline) 5 mg IV Q6H PRN PRN Reason: Hypertension Last Admin: 02/28/18 10:04 Dose: 5 mg Sodium Chloride (Nacl 0.45% 1000 Ml) 1,000 mls @ 100 mls/hr IV DIRECT [facility] Last Admin: 02/28/18 06:16 Dose: 100 mls/hr Midazolam HCl 100 mg/ Sodium (Chloride) 100 mls @ 2 mls/hr IV TITR [facility]; Protocol Lansoprazole (Prevacid Solutab) 30 mg FEEDTUBE QDAY [facility] Last Admin: 02/28/18 10:01 Dose: 30 mg Levothyroxine Sodium (Synthroid) 100 mcg PO QDAY@0600 [facility] Last Admin: 02/28/18 06:16 Dose: 100 mcg Ondansetron HCl (Zofran) 4 mg IV Q8H PRN PRN Reason: Nausea And Vomiting Sodium Chloride (Sodium Chloride Flush Syringe 10 Ml) 10 ml IV BID [facility] Last Admin: 02/28/18 10:02 Dose: 10 ml Sodium Chloride (Sodium Chloride Flush Syringe 10 Ml) 10 ml IV PRN PRN PRN Reason: LINE FLUSH Review of Systems ROS unobtainable: due to endotracheal tube, due to mental status Physical Examination Vital signs: Vital Signs Pulse Resp BP Pulse Ox 79 12 68/30 99 02/27/18 21:07 02/27/18 21:07 02/27/18 21:07 02/27/18 21:07 General appearance: comatose ENT: other (orally intubated, no sedation) Effort: normal Ascultation: Bilateral: clear Percussion: Bilateral: not dull Cardiovascular: regular rate and rhythm Results - Laboratory Findings CBC and BMP: 02/27/18 21:50 02/27/18 21:50 ABG POC ABG pH 7.288 (7.35-7.45) L 02/27/18 22:06 POC ABG pCO2 34.2 (35-45) L 02/27/18 22:06 POC ABG pO2 574 (80-105) H 02/27/18 22:06 POC ABG HCO3 16.4 02/27/18 22:06 POC ABG Total CO2 17 02/27/18 22:06 POC ABG O2 Sat 100 02/27/18 22:06 PT/INR, D-dimer PT 13.9 Sec. (12.2-14.9) 02/27/18 21:50 INR 1.02 (0.87-1.13) 02/27/18 21:50 Abnormal lab findings: Abnormal Labs 02/27/18 02/27/18 02/27/18 21:50 21:50 21:50 WBC 12.0 H Hgb 14.9 H Hct 47.0 H Lymphocytes % (Manual) 40.0 H POC ABG pH POC ABG pCO2 POC ABG pO2 Sodium 136 L Chloride 93.6 L Carbon Dioxide 14 L BUN 21 H Creatinine 1.4 H Glucose 409 H POC Glucose AST 305 H ALT 272 H Alkaline Phosphatase 167 H Total Creatine Kinase 250 H CK-MB (CK-2) 21.8 H CK-MB (CK-2) Rel Index 8.7 H Troponin T 0.416 H* Total Protein 8.3 H Cholesterol 201 H HDL Cholesterol 80 H 02/27/18 02/28/18 02/28/18 22:06 00:10 03:12 WBC Hgb Hct Lymphocytes % (Manual) POC ABG pH 7.288 L POC ABG pCO2 34.2 L POC ABG pO2 574 H Sodium Chloride Carbon Dioxide BUN Creatinine Glucose POC Glucose AST ALT Alkaline Phosphatase Total Creatine Kinase 314 H 486 H CK-MB (CK-2) 29.0 H 44.8 H CK-MB (CK-2) Rel Index 9.2 H 9.2 H Troponin T 0.506 H* D 1.560 H* D Total Protein Cholesterol HDL Cholesterol 02/28/18 02/28/18 02/28/18 06:37 08:54 09:57 WBC Hgb Hct Lymphocytes % (Manual) POC ABG pH POC ABG pCO2 POC ABG pO2 Sodium Chloride Carbon Dioxide BUN Creatinine Glucose POC Glucose 419 H 388 H AST ALT Alkaline Phosphatase Total Creatine Kinase 757 H CK-MB (CK-2) 52.6 H CK-MB (CK-2) Rel Index 6.9 H Troponin T 1.920 H* D Total Protein Cholesterol HDL Cholesterol - Diagnostic Findings Chest x-ray: image reviewed (clear CXR) Assessment and Plan Oldest daughter has brought in paperwork showing the Allow natural . We will extubate today and make patient comfort care. She may require hospice therapy as she is likely anoxic from prolonged downtime without a pulse. CCT 31 minutes.
[2018-02-28] MEDS: MORPHINE IV PRN ×4 (12:50→18:26)
[2018-02-28] MEDS: ATIVAN IV PRN ×4 (12:50→18:26)
--- NOTE | 2018-02-28 13:09 | Consultation ---
History of Present Illness Consult date: 02/28/18 Consult reason: cardiac arrest History of present illness: This is an 87 year old woman who was brought in after she was found unresponsive at the long-term. Patient was was resuscitated and admitted to the CCU. She is currently is unresponsive, on mechanical ventilation. History is unobtainable. An EKG on presentation shows a normal sinus rhythm, no acute ischemic changes. Cardiology consultation was requested for further evaluation. Medications and Allergies Allergies Allergy/AdvReac Type Severity Reaction Status Date / Time No Known Allergies Allergy Verified 04/11/13 15:49 Home Medications Medication Instructions Recorded Confirmed Last Taken Type Aspirin [Aspirin BABY CHEW TAB] 81 mg PO QDAY 01/26/13 01/26/13 01/26/13 08:00 History 81 Insulin Glargine,Hum.rec.anlog 15 unit SQ QDAY 01/26/13 01/26/13 01/26/13 07:30 History [Lantus Solostar] 15u Ipratropium/Albuterol Sulfate 1 ampul IH Q6HRT #24 ampul.neb 01/26/13 Unknown Rx [DUONEB *Not for PRN Use*] Levothyroxine [Synthroid] 100 mcg PO QAM 01/26/13 01/26/13 01/26/13 08:00 History 25 Prednisone 40 mg PO QDAY #5 day 01/26/13 Unknown Rx Vit D3-Vit K/Berberine/Hops 01/26/13 01/26/13 01/22/13 08:00 History [Ostera Tablet] amLODIPine/VALSARTAN [Exforge 1 each PO BID 01/26/13 01/26/13 01/26/13 08:00 History 5-160 mg Tablet] 1 Azelastine/Fluticasone [Dymista 137 mcg NS PRN 04/11/13 04/11/13 Unknown History Nasal [place]] HYDROcodone/ACETAMINOPHEN 1 each PO Q4H PRN 04/11/13 04/11/13 Unknown History [Hydrocodone-Acetaminophnen(Nf) 10/500 mg Tab] Insulin NPH/Regular [NovoLIN 70/30] 12 unit SQ BIDDIAB 04/11/13 04/11/13 Unknown History Montelukast Sodium 10 04/11/13 04/11/13 Unknown History Ranitidine HCl [Zantac] 300 mg PO QDAY #20 tablet 04/11/13 Unknown Rx Prednisone 20 mg PO QDAY #30 tablet 05/09/13 Unknown Rx Benzonatate [Tessalon Perles] 100 mg PO Q8HR PRN #30 capsule 11/05/13 Unknown Rx Aspirin EC [Aspirin Enteric Coated 81 mg PO QDAY 08/19/14 10/11/14 10/09/14 History TAB] Cholecalciferol Vit D3 [Vitamin D3] 1,000 unit PO QDAY 08/19/14 10/11/14 History Fluticasone Propionate [Flovent 1 puff IH BID 08/19/14 10/11/14 10/09/14 History Diskus] Ipratropium/Albuterol Sulfate 2 puff IH BID 08/19/14 10/11/14 10/09/14 History [Combivent Respimat] Ipratropium/Albuterol Sulfate 3 ml IH BID 08/19/14 10/11/14 10/09/14 History [Iprat-Albut 0.5-3(2.5) mg/3 ml] Montelukast [Singulair] 10 mg PO DAILY 08/19/14 10/11/14 10/09/14 History Omeprazole [PriLOSEC] 40 mg PO DAILY #30 capsule. 08/21/14 10/11/14 10/09/14 Rx Combivent Respimat 2 puff INHALATION BID 10/09/14 10/11/14 10/09/14 History Levothyroxine 100 mcg PO QDAY 10/09/14 10/11/14 10/09/14 History NovoLIN 70/30 12 units SUB-Q BID 10/09/14 10/11/14 10/09/14 History 12 UNITS Valsartan-Hctz 160-12.5 mg 1 tab PO QDAY 10/09/14 10/11/14 10/09/14 History HYDROcodone/APAP 7.5-325 [[place] 2 tsp PO Q4HR PRN 10/11/14 10/11/14 10/09/14 History 7.5-325 mg per 15 ML] metFORMIN [Glucophage] 500 mg PO BID 10/11/14 10/11/14 10/09/14 History traMADol [Ultram 50 MG tab] 50 mg PO Q8HR PRN #20 tablet 07/31/15 Unknown Rx Active Meds: Active Medications Acetaminophen (Tylenol) 650 mg PO Q4H PRN PRN Reason: Pain MILD(1-3)/Fever >100.5/BAIRES Albuterol/Ipratropium (Duoneb *Not For Prn Use*) 1 ampul IH BIDRT [facility] Last Admin: 02/28/18 10:50 Dose: 1 ampul Aspirin (Baby Aspirin) 81 mg PO QDAY [facility] Last Admin: 02/28/18 10:01 Dose: 81 mg Budesonide (Pulmicort) 0.5 mg IH Q12HRT [facility] Last Admin: 02/28/18 10:50 Dose: 0.5 mg Cholecalciferol (Vitamin D3) 1,000 unit PO QDAY [facility] Last Admin: 02/28/18 10:01 Dose: 1,000 unit Dextrose (D50w (25gm) Syringe) 50 ml IV PRN PRN PRN Reason: Hypoglycemia Enoxaparin Sodium (Lovenox) 40 mg SUB-Q QDAY [facility] Last Admin: 02/28/18 10:02 Dose: 40 mg Hydralazine HCl (Apresoline) 5 mg IV Q6H PRN PRN Reason: Hypertension Last Admin: 02/28/18 10:04 Dose: 5 mg Sodium Chloride (Nacl 0.45% 1000 Ml) 1,000 mls @ 100 mls/hr IV DIRECT [facility] Last Admin: 02/28/18 06:16 Dose: 100 mls/hr Midazolam HCl 100 mg/ Sodium (Chloride) 100 mls @ 2 mls/hr IV TITR [facility]; Protocol Lansoprazole (Prevacid Solutab) 30 mg FEEDTUBE QDAY [facility] Last Admin: 02/28/18 10:01 Dose: 30 mg Levothyroxine Sodium (Synthroid) 100 mcg PO QDAY@0600 [facility] Last Admin: 02/28/18 06:16 Dose: 100 mcg Lorazepam (Ativan) 1 mg IV Q1H PRN PRN Reason: Agitation Last Admin: 02/28/18 12:50 Dose: 1 mg Morphine Sulfate (Morphine) 2 mg IV Q5MIN PRN PRN Reason: Dyspnea Last Admin: 02/28/18 12:50 Dose: 2 mg Ondansetron HCl (Zofran) 4 mg IV Q8H PRN PRN Reason: Nausea And Vomiting Sodium Chloride (Sodium Chloride Flush Syringe 10 Ml) 10 ml IV BID [facility] Last Admin: 02/28/18 10:02 Dose: 10 ml Sodium Chloride (Sodium Chloride Flush Syringe 10 Ml) 10 ml IV PRN PRN PRN Reason: LINE FLUSH Physical Examination Vital Signs Pulse Resp BP Pulse Ox 79 12 68/30 99 02/27/18 21:07 02/27/18 21:07 02/27/18 21:07 02/27/18 21:07 General appearance: other (unresponsive on mechanical ventilation) Cardiac: Positive: Reg Rate and Rhythm Results 02/27/18 21:50 02/27/18 21:50 Cardiac Enzymes 02/27/18 02/27/18 02/28/18 Range/Units 21:50 21:50 00:10 AST 305 H (5-40) units/L CK-MB (CK-2) 21.8 H 29.0 H (0.0-4.0) ng/mL 02/28/18 02/28/18 Range/Units 03:12 08:54 AST (5-40) units/L CK-MB (CK-2) 44.8 H 52.6 H (0.0-4.0) ng/mL Coagulation 02/27/18 Range/Units 21:50 PT 13.9 (12.2-14.9) Sec. INR 1.02 (0.87-1.13) APTT 35.0 (24.2-36.6) Sec. Lipids 02/27/18 Range/Units 21:50 Triglycerides 138 (2-149) mg/dL Cholesterol 201 H (50-199) mg/dL HDL Cholesterol 80 H (40-59) mg/dL Cholesterol/HDL Ratio 2.51 % CBC 02/27/18 Range/Units 21:50 WBC 12.0 H (4.5-11.0) K/mm3 RBC 4.82 (3.65-5.03) M/mm3 Hgb 14.9 H (10.1-14.3) gm/dl Hct 47.0 H (30.3-42.9) % Plt Count 221 (140-440) K/mm3 Comprehensive Metabolic Panel 02/27/18 02/27/18 Range/Units 21:50 21:50 Sodium 136 L (137-145) mmol/L Potassium 4.7 (3.6-5.0) mmol/L Chloride 93.6 L (98-107) mmol/L Carbon Dioxide 14 L (22-30) mmol/L BUN 21 H (7-17) mg/dL Creatinine 1.4 H (0.7-1.2) mg/dL Glucose 409 H (65-100) mg/dL Calcium 9.0 (8.4-10.2) mg/dL Direct Bilirubin < 0.2 (0-0.2) mg/dL AST 305 H (5-40) units/L ALT 272 H (7-56) units/L Alkaline Phosphatase 167 H (35-129) units/L Total Protein 8.3 H (6.3-8.2) g/dL Albumin 4.5 (3.9-5) g/dL
--- NOTE | 2018-02-28 15:06 | Progress Note ---
Assessment and Plan Assessment and plan: Patient is a 87-year-old woman with a history of hypertension, diabetes, CVA, and COPD who presented from the assisted living facility because she was noted to be slumped over while sitting at the dinner table. She was in cardiac arrest. According to the chart; the patient has a living will that says DO NOT RESUSCITATE; however, the daughter, Sofiya gamez wanted everything to be done at the time. Daughter Alejandra at bedside says that patient has 7 kids but Sofiya is the stated POA and she went to get the advance directive form to verify their mother's wishes. Cardiac arrest Acute respiratory failure Abnormal cardiac enzymes Elevated LFTs Dehydration Hypertension History of dementia History of CVA Admit to medicine Check cardiac enzymes, echo, CAT scan of abdomen and pelvis Consult cardiology, critical care Start aspirin, BB, hold ACEI for now, renal failure Start gentle hydration, IV hydralazine for blood pressure control DVT prophylaxis History Interval history: Patient was seen and examined. Follow-up on current diagnosis of cardiac arrest , unresponsive. Overnight uneventful. Imaging, nursing note, chart, labs and old chart reviewed. Hospitalist Physical - Physical exam Narrative exam: GEN: ill appearing, intubated, not sedated, semi-comatose HEENT: NCAT, > upward gaze, PERRL, OP Clear NECK: supple, no adenopathy, no thyromegaly, no JVD CVS/HEART: Regular tachy normal S1S2, pulses present bilaterally CHEST/LUNGS: Symmetrical chest expansion, good air entry bilaterally GI/Abdomen: soft, +good bowel sounds, no guarding or rebound /Bladder: no suprapubic tenderness, no CVA or paraspinal tenderness EXT/Skin: no obvious rash MSK: involuntary twitches Neuro: CN 2-12 grossly intact, doesn't follow command Psych: semi-comatose - Constitutional Vitals: Temp Pulse Resp BP Pulse Ox 99.8 F H 144 H 36 H 206/103 98 02/28/18 12:00 02/28/18 13:00 02/28/18 13:09 02/28/18 13:00 02/28/18 13:00 General appearance: Present: other (unresponsive on mechanical ventilation) Results - Labs CBC & Chem 7: 02/27/18 21:50 02/27/18 21:50 Labs: Laboratory Last Values WBC 12.0 K/mm3 (4.5-11.0) H 02/27/18 21:50 RBC 4.82 M/mm3 (3.65-5.03) 02/27/18 21:50 Hgb 14.9 gm/dl (10.1-14.3) H 02/27/18 21:50 Hct 47.0 % (30.3-42.9) H 02/27/18 21:50 MCV 97 fl (79-97) 02/27/18 21:50 MCH 31 pg (28-32) 02/27/18 21:50 MCHC 32 % (30-34) 02/27/18 21:50 RDW 14.5 % (13.2-15.2) 02/27/18 21:50 Plt Count 221 K/mm3 (140-440) 02/27/18 21:50 Add Manual Diff Complete 02/27/18 21:50 Total Counted 100 02/27/18 21:50 Seg Neuts % (Manual) 52.0 % (40.0-70.0) 02/27/18 21:50 Band Neutrophils % 6.0 % 02/27/18 21:50 Lymphocytes % (Manual) 40.0 % (13.4-35.0) H 02/27/18 21:50 Reactive Lymphs % (Man) 0 % 02/27/18 21:50 Monocytes % (Manual) 2.0 % (0.0-7.3) 02/27/18 21:50 Eosinophils % (Manual) 0 % (0.0-4.3) 02/27/18 21:50 Basophils % (Manual) 0 % (0.0-1.8) 02/27/18 21:50 Metamyelocytes % 0 % 02/27/18 21:50 Myelocytes % 0 % 02/27/18 21:50 Promyelocytes % 0 % 02/27/18 21:50 Blast Cells % 0 % 02/27/18 21:50 Nucleated RBC % Not Reportable 02/27/18 21:50 Seg Neutrophils # Man 6.2 K/mm3 (1.8-7.7) 02/27/18 21:50 Band Neutrophils # 0.7 K/mm3 02/27/18 21:50 Lymphocytes # (Manual) 4.8 K/mm3 (1.2-5.4) 02/27/18 21:50 Abs React Lymphs (Man) 0.0 K/mm3 02/27/18 21:50 Monocytes # (Manual) 0.2 K/mm3 (0.0-0.8) 02/27/18 21:50 Eosinophils # (Manual) 0.0 K/mm3 (0.0-0.4) 02/27/18 21:50 Basophils # (Manual) 0.0 K/mm3 (0.0-0.1) 02/27/18 21:50 Metamyelocytes # 0.0 K/mm3 02/27/18 21:50 Myelocytes # 0.0 K/mm3 02/27/18 21:50 Promyelocytes # 0.0 K/mm3 02/27/18 21:50 Blast Cells # 0.0 K/mm3 02/27/18 21:50 WBC Morphology Not Reportable 02/27/18 21:50 Hypersegmented Neuts Not Reportable 02/27/18 21:50 Hyposegmented Neuts Not Reportable 02/27/18 21:50 Hypogranular Neuts Not Reportable 02/27/18 21:50 Smudge Cells Not Reportable 02/27/18 21:50 Toxic Granulation Not Reportable 02/27/18 21:50 Toxic Vacuolation Not Reportable 02/27/18 21:50 Dohle Bodies Not Reportable 02/27/18 21:50 Pelger-Huet Anomaly Not Reportable 02/27/18 21:50 Nicolette Rods Not Reportable 02/27/18 21:50 Platelet Estimate Consistent w auto 02/27/18 21:50 Clumped Platelets Not Reportable 02/27/18 21:50 Plt Clumps, EDTA Not Reportable 02/27/18 21:50 Large Platelets Not Reportable 02/27/18 21:50 Giant Platelets Not Reportable 02/27/18 21:50 Platelet Satelliting Not Reportable 02/27/18 21:50 Plt Morphology Comment Not Reportable 02/27/18 21:50 RBC Morphology Not Reportable 02/27/18 21:50 Dimorphic RBCs Not Reportable 02/27/18 21:50 Polychromasia Not Reportable 02/27/18 21:50 Hypochromasia Not Reportable 02/27/18 21:50 Poikilocytosis Not Reportable 02/27/18 21:50 Anisocytosis Not Reportable 02/27/18 21:50 Microcytosis Not Reportable 02/27/18 21:50 Macrocytosis Not Reportable 02/27/18 21:50 Spherocytes Not Reportable 02/27/18 21:50 Pappenheimer Bodies Not Reportable 02/27/18 21:50 Sickle Cells Not Reportable 02/27/18 21:50 Target Cells Not Reportable 02/27/18 21:50 Tear Drop Cells Not Reportable 02/27/18 21:50 Ovalocytes 1+ 02/27/18 21:50 Helmet Cells Not Reportable 02/27/18 21:50 Webb-[place] Bodies Not Reportable 02/27/18 21:50 [place] Rings Not Reportable 02/27/18 21:50 [place] Cells Not Reportable 02/27/18 21:50 Bite Cells Not Reportable 02/27/18 21:50 Crenated Cell 2+ 02/27/18 21:50 Elliptocytes Not Reportable 02/27/18 21:50 Acanthocytes (Spur) Not Reportable 02/27/18 21:50 Rouleaux Not Reportable 02/27/18 21:50 Hemoglobin C Crystals Not Reportable 02/27/18 21:50 Schistocytes Not Reportable 02/27/18 21:50 Malaria parasites Not Reportable 02/27/18 21:50 Carl Bodies Not Reportable 02/27/18 21:50 Hem Pathologist Commnt No 02/27/18 21:50 PT 13.9 Sec. (12.2-14.9) 02/27/18 21:50 INR 1.02 (0.87-1.13) 02/27/18 21:50 APTT 35.0 Sec. (24.2-36.6) 02/27/18 21:50 POC ABG pH 7.288 (7.35-7.45) L 02/27/18 22:06 POC ABG pCO2 34.2 (35-45) L 02/27/18 22:06 POC ABG pO2 574 (80-105) H 02/27/18 22:06 POC ABG HCO3 16.4 02/27/18 22:06 POC ABG Total CO2 17 02/27/18 22:06 POC ABG O2 Sat 100 02/27/18 22:06 POC ABG Base Excess -10 02/27/18 22:06 FiO2 100 % 02/27/18 22:06 Sodium 136 mmol/L (137-145) L 02/27/18 21:50 Potassium 4.7 mmol/L (3.6-5.0) 02/27/18 21:50 Chloride 93.6 mmol/L (98-107) L 02/27/18 21:50 Carbon Dioxide 14 mmol/L (22-30) L 02/27/18 21:50 Anion Gap 33 mmol/L 02/27/18 21:50 BUN 21 mg/dL (7-17) H 02/27/18 21:50 Creatinine 1.4 mg/dL (0.7-1.2) H 02/27/18 21:50 Estimated GFR 43 ml/min 02/27/18 21:50 BUN/Creatinine Ratio 15 % 02/27/18 21:50 Glucose 409 mg/dL (65-100) H 02/27/18 21:50 POC Glucose 365 (70-105) H 02/28/18 14:04 Calcium 9.0 mg/dL (8.4-10.2) 02/27/18 21:50 Total Bilirubin 0.30 mg/dL (0.1-1.2) 02/27/18 21:50 Direct Bilirubin < 0.2 mg/dL (0-0.2) 02/27/18 21:50 AST 305 units/L (5-40) H 02/27/18 21:50 ALT 272 units/L (7-56) H 02/27/18 21:50 Alkaline Phosphatase 167 units/L (35-129) H 02/27/18 21:50 Total Creatine Kinase 757 units/L (30-135) H 02/28/18 08:54 CK-MB (CK-2) 52.6 ng/mL (0.0-4.0) H 02/28/18 08:54 CK-MB (CK-2) Rel Index 6.9 (0-4) H 02/28/18 08:54 Troponin T 1.920 ng/mL (0.00-0.029) H* D 02/28/18 08:54 Total Protein 8.3 g/dL (6.3-8.2) H 02/27/18 21:50 Albumin 4.5 g/dL (3.9-5) 02/27/18 21:50 Albumin/Globulin Ratio 1.2 % 02/27/18 21:50 Triglycerides 138 mg/dL (2-149) 02/27/18 21:50 Cholesterol 201 mg/dL (50-199) H 02/27/18 21:50 LDL Cholesterol Direct 118 mg/dL (50-130) 02/27/18 21:50 HDL Cholesterol 80 mg/dL (40-59) H 02/27/18 21:50 Cholesterol/HDL Ratio 2.51 % 02/27/18 21:50 Urine Color Straw (Yellow) 02/28/18 09:00 Urine Turbidity Clear (Clear) 02/28/18 09:00 Urine pH 5.0 (5.0-7.0) 02/28/18 09:00 Ur Specific [place] 1.016 (1.003-1.030) 02/28/18 09:00 Urine Protein <15 mg/dl mg/dL (Negative) 02/28/18 09:00 Urine Glucose (UA) >=500 mg/dL (Negative) 02/28/18 09:00 Urine Ketones Tr mg/dL (Negative) 02/28/18 09:00 Urine Blood Mod (Negative) 02/28/18 09:00 Urine Nitrite Neg (Negative) 02/28/18 09:00 Urine Bilirubin Neg (Negative) 02/28/18 09:00 Urine Urobilinogen < 2.0 mg/dL (<2.0) 02/28/18 09:00 Ur Leukocyte Esterase Neg (Negative) 02/28/18 09:00 Urine WBC (Auto) 6.0 /HPF (0.0-6.0) 02/28/18 09:00 Urine RBC (Auto) 6.0 /HPF (0.0-6.0) 02/28/18 09:00 U Epithel Cells (Auto) < 1.0 /HPF (0-13.0) 02/28/18 09:00 Blood Type B POSITIVE 02/27/18 21:53 Antibody Screen Negative 02/27/18:53
[2018-03-01 02:15] VITALS: BP 120/99
--- NOTE | 2018-03-01 02:24 | Event Note ---
Call to pronounce patient Pupil fixed, dilated, no heart sounds, respirations Time of 219
--- NOTE | 2018-03-01 08:15 | Death Summary ---
Summary - Providers Consults: 02/28/18 00:28 Consult to Physician [CONS] Stat Comment: Consulting Provider: KELIN COLMENARES Physician Instructions: Reason For Exam: CARDIAC ARREST 02/28/18 10:03 Consult to Physician [CONS] Routine Comment: Consulting Provider: DAVE CRUM Physician Instructions: Reason For Exam: NSTEMI Attending: FLORY MANNING - summary Date of admission: 02/28/18 02:38 Date of : 03/01/18 Significant findings: Patient is a 87-year-old woman with a history of hypertension, diabetes, CVA, and COPD who presented from the assisted living facility because she was noted to be slumped over while sitting at the dinner table. She was in cardiac arrest. According to the chart; the patient has a living will that says DO NOT RESUSCITATE; however, the daughter, Sofiya gamez wanted everything to be done at the time. Daughter Alejandra at bedside says that patient has 7 kids but Sofiya is the stated POA and she went to get the advance directive form to verify their mother's wishes. Cardiac arrest Acute respiratory failure Abnormal cardiac enzymes Elevated LFTs Dehydration Hypertension History of dementia History of CVA Family decided to withdraw care, Dr. Miriam Godoy was Call to pronounce patient Pupil fixed, dilated, no heart sounds, respirations Time of 0220 Cause of suspected to be Cardiac arrest, reason not certain, my best guess is AMI
== END 2018-03-01 03:45 | DRG 208 ==
LOC: ED 20:51 → CC1 02-28 02:38 → 2B-ACE 02-28 19:12
PROVIDERS: ADMIT Internal Medicine; ATTEND Internal Medicine
PROC: 5A1935Z Respiratory Ventilation, Less than 24 Consecutive Hours (ICD-10-PCS; principal; 2018-02-27)
PROC: 0BH17EZ Insertion of Endotracheal Airway into Trachea, Via Natural or Artificial Opening (ICD-10-PCS; 2018-02-27)
PROC: 4A033R1 Measurement of Arterial Saturation, Peripheral, Percutaneous Approach (ICD-10-PCS; 2018-02-27)
PROC: 5A12012 Performance of Cardiac Output, Single, Manual (ICD-10-PCS; 2018-02-27)
PROC: 06HM33Z Insertion of Infusion Device into Right Femoral Vein, Percutaneous Approach (ICD-10-PCS; 2018-02-27)
DX: J96.00 Acute respiratory failure, unspecified whether with hypoxia or hypercapnia (principal); I46.9 Cardiac arrest, cause unspecified; E11.9 Type 2 diabetes mellitus without complications; I10 Essential (primary) hypertension; K21.9 Gastro-esophageal reflux disease without esophagitis; M19.90 Unspecified osteoarthritis, unspecified site; J44.9 Chronic obstructive pulmonary disease, unspecified; Z66 Do not resuscitate; E86.0 Dehydration; Z86.73 Personal history of transient ischemic attack (TIA), and cerebral infarction without residual deficits; Z79.82 Long term (current) use of aspirin; Z79.4 Long term (current) use of insulin
CPT/HCPCS: 36415; 51701; 70450; 71045; 74176; 80048; 80061; 80074; 81001; 82550; 82553; 82803; 82962; 84484; 85007; 85025; 85610; 85730; 86850; 86900; 86901; 92950; 93005; 93010; 94002; 94003; 94640; 94760; 96361; 96374; 96375; J0360; J1650; J1815; J2060; J2250; J2270; J7030